=== PATIENT | female | born 1985 | race African-American/Black ===

== ENCOUNTER 2016-12-24 16:54 | Emergency (ER) | payer MEDICAID ==
[~2016-12-24] VITALS: Ht 170.2 cm; Wt 49.0 kg
[~2016-12-24 16:54] MED LIST: IBUPROFEN600 MG ORAL; NKM
[2016-12-24 17:16] VITALS: BP 121/78
[2016-12-24] MEDS ORDERED: IBUPROFEN600 MG ORAL (17:20)
[2016-12-24] MEDS ORDERED: BACITRACIN15 GM TOPIC (17:20)
[2016-12-24 17:43] VITALS: BP 121/78
--- NOTE | 2016-12-24 22:19 | Emergency Room Report ---
History of Present Illness General Chief Complaint: Upper Extremity Injury Source: Patient Present Illness HPI The patient is a 31-year-old female presenting for multiple abrasions. The patient states that she was traveling down a plexiglass slide with a tank top on and felt her skin burning and she distended. Pain is described as a 7/10 burning sensation and does not radiate. Pain worse with touch. She denies hitting any other part of her body. She denies any other symptoms including nausea, vomiting, fever, chills, headache Allergies: Coded Allergies: No Known Allergies (Unverified , 08/21/16) Patient History Past Medical History: see triage record Pertinent Family History: none Last Menstrual Period: 2 weeks Now: No Reviewed Nursing Documentation: PMH: Agreed, PSxH: Agreed Nursing Documentation-PMH Past Medical History: No Stated History Review of Systems All Other Systems: negative except mentioned in HPI Physical Exam Vital Signs Date Time Temp Pulse Resp B/P Pulse Ox O2 Delivery O2 Flow Rate FiO2 12/24/16 17:05 97.7 79 18 121/78 98 Room Air Sp02 EP Interpretation: reviewed, normal General Appearance: no apparent distress, alert, GCS 15, non-toxic Head: normocephalic, atraumatic Eyes: bilateral eye PERRL, bilateral eye normal inspection ENT: hearing grossly normal, normal pharynx, no angioedema, normal voice Neck: full range of motion, supple/symm/no masses Respiratory: chest non-tender, lungs clear, normal breath sounds, speaking full sentences Musculoskeletal: back normal, digits/nails normal, gait/station normal, normal range of motion Neurologic: alert, oriented x3, responsive, motor strength/tone normal, sensory intact, speech normal Psychiatric: judgement/insight normal, memory normal, mood/affect normal, no suicidal/homicidal ideation Skin: normal turgor, abrasions - multiple abrasions to bilat posterior arms and back Lymphatic: no adenopathy Medical Decision Making PA Attestation Dr. Pringle is my supervising physician. Patient management was discussed with my supervising physician Diagnostic Impression: Primary Impression: Abrasions of multiple sites ER Course The patient is a 31-year-old female presenting for multiple abrasions. Ddx considered include but not limited to sprain/strain, abrasion, fracture, contusion Physical exam: Vitals are within normal limits. No apparent distress There are multiple abrasions to posterior bilateral arms and back. No bleeding. No edema. Full active range of motion. The abrasions were cleaned with normal saline and Betadine. She is given Motrin for pain and will be discharged home. ER precautions are given Last Vital Signs Date Time Temp Pulse Resp B/P Pulse Ox O2 Delivery O2 Flow Rate FiO2 12/24/16 17:50 97.7 12/24/16 17:43 18 121/78 98 Room Air 12/24/16 17:05 79 Status: improved Disposition: HOME, SELF-CARE Condition: Improved Scripts Bacitracin (Bacitracin) 28.4 Gm Oint...g. 1 APPLIC TOPIC THREE TIMES A DAY, #28 GM Prov: TRUONG NORTON 12/24/16 Ibuprofen* (MOTRIN*) 600 Mg Tablet 600 MG ORAL Q8H Y for For Pain, #30 TAB 0 Refills Prov: TRUONG NORTON 12/24/16 Referrals: NOT CHOSEN IPA/,REFERRING (PCP) Patient Instructions: Abrasion Additional Instructions: I discussed my findings with the patient. All questions and concerns have been answered. Treatment and medication compliance have been addressed. I advised the patient that they need to follow up with PMD in 3-5 days. Return to ED if symptoms worsen, new symptoms arise, or if needed for any reason. Patient verbalized understanding of discharge instructions. TRUONG NORTON December 24, 2016 22:19
== END 2016-12-24 17:53 | disposition home or self-care (01) ==
LOC: EMR 17:18
DX: S40.812A Abrasion of left upper arm, initial encounter (principal); S40.811A Abrasion of right upper arm, initial encounter; S30.810A Abrasion of lower back and pelvis, initial encounter; W22.8XXA Striking against or struck by other objects, initial encounter; Y92.89 Other specified places as the place of occurrence of the external cause
CPT/HCPCS: 99284